=== PATIENT | female | born 1990 | race Two or more races ===

== ENCOUNTER 2017-08-31 11:23 | Emergency (ER) | payer OTHER, SELFPAY ==
[~2017-08-31] VITALS: Ht 175.3 cm; Wt 84.9 kg
[2017-08-31 11:25] VITALS: BP 133/82
== END 2017-08-31 11:54 | disposition home or self-care (01) ==
LOC: ED 11:47
DX: J02.0 Streptococcal pharyngitis (principal); F17.210 Nicotine dependence, cigarettes, uncomplicated
CPT/HCPCS: 99283